=== PATIENT | female | born 1985 | race Caucasian/White ===

== ENCOUNTER 2021-09-11 13:48 | Outpatient (CLI) | payer BC ==
[2021-09-12 08:59] LABS: SARS-CoV-2 PCR by NAA Not Detected (NotDetected)
== END 2021-09-11 13:49 | disposition home or self-care (01) ==
LOC: CSHLAB 13:48
PROVIDERS: ATTEND Obstetrics & Gynecology
DX: Z20.822 Contact with and (suspected) exposure to COVID-19 (principal)
CPT/HCPCS: U0003; U0005

== ENCOUNTER 2021-09-13 05:48 | Inpatient (IN) | payer BC ==
[2021-09-13] MEDS ORDERED: Bicitra 30 ML UDCUP PO PRN (05:57)
[2021-09-13] MEDS ORDERED: Butorphanol Tartrate 1 MG/ML VIAL SLOW IVP PRN (05:57)
[2021-09-13] MEDS ORDERED: hydrALAZINE 20 MG/ML VIAL SLOW IVP PRN ×2 (05:57→10:39)
[2021-09-13] MEDS ORDERED: Ondansetron PF 4 MG/2 ML Vial IVP PRN ×4 (05:57→13:33)
[2021-09-13] MEDS ORDERED: CEFAZOLIN 2 GM in Premix Bag 1 BAG IVPB SCH (05:57)
[2021-09-13] MEDS ORDERED: Famotidine/PF 20 mg/2ml Vial SLOW IVP PRN (05:57)
[2021-09-13] MEDS ORDERED: Promethazine HCl 25 MG/ML VIAL IM PRN ×3 (05:57→13:33)
[2021-09-13 06:30] VITALS: BMI 32.8
[2021-09-13] MEDS: Lactated Ringer's 1,000 ML IV SCH ×2 (06:40→07:15)
[2021-09-13 06:55] LABS: Hemoglobin 12.1 g/dL (12.0-15.5); Mean Corpuscular HGB CONC 33.9 g/dL (32.0-36.0); Mean Corpuscular Hemoglobin 30.9 pg (27.0-33.0); Mean Corpuscular Volume 91.1 fl (81.6-98.3); Mean Platelet Volume 10.9 fl (7.4-10.4); Platelet Count 329 10x3/uL (150-450); RBC Distribution Width 13.2 % (11.5-14.5); Red Blood Cell (RBC) Count 3.92 10x6/uL (3.90-5.03); White Blood Cell (WBC) Count 10.9 10x3/uL (3.5-10.5)
[2021-09-13] MEDS ORDERED: Oxytocin 10 UNITS/ML VIAL ONE ×2 (07:08→08:16)
[2021-09-13] MEDS ORDERED: Ketorolac Tromethamine 30 MG/ML VIAL ONE (07:12)
[2021-09-13] MEDS ORDERED: Ondansetron PF 4 MG/2 ML Vial ONE (07:12)
[2021-09-13] MEDS ORDERED: Phenylephrine 40 MG/NS 250 ML 250 ML ONE (07:12)
[2021-09-13] MEDS ORDERED: Morphine PF 10 MG/10 ML VIAL ONE (07:17)
[2021-09-13] MEDS ORDERED: diphenhydrAMINE 50 MG/ML VIAL IVP PRN ×2 (07:28→13:33)
[2021-09-13] MEDS ORDERED: Fentanyl 100 MCG/2 ML VIAL SLOW IVP PRN ×2 (07:28→13:33)
[2021-09-13] MEDS ORDERED: Ketorolac Tromethamine 30 MG/ML VIAL IVP PRN (07:28)
[2021-09-13] MEDS ORDERED: Ondansetron HCl/PF 4 MG/2 ML Vial IVP PRN ×2 (07:28→13:33)
[2021-09-13] MEDS ORDERED: Naloxone HCl 0.4 mg/ml Vial IV PRN ×2 (07:28→13:33)
[2021-09-13] MEDS ORDERED: Hydrocerin (Eucerin) Cream 120 gm Jar TOP PRN ×2 (07:28→13:33)
[2021-09-13] MEDS ORDERED: Naloxone HCl 0.4 mg/ml Vial IVP PRN ×4 (07:28→13:33)
[2021-09-13] MEDS ORDERED: Promethazine HCl 25 MG SUPP PR PRN ×2 (07:28→13:33)
[2021-09-13] MEDS ORDERED: Meperidine HCl/PF 25 MG/ML VIAL SLOW IVP PRN ×2 (07:28→13:33)
[2021-09-13] MEDS ORDERED: HYDROmorphone 2 MG/ML VIAL SLOW IVP PRN (07:28)
[2021-09-13] MEDS ORDERED: Ketorolac Tromethamine 30 MG/ML VIAL IVP SCH ×2 (07:30→13:45)
[2021-09-13] MEDS ORDERED: Communication Order-Pharmacy FS SCH (07:30)
[2021-09-13 07:56] LABS: Hep B Surf Ag Non-Reactive S/CO (NonReactive); Syphilis Antibody Nonreactive (Nonreactive); Syphilis Antibody Index 0.02 S/CO (<1.00 Non-Reactive)
[2021-09-13] MEDS ORDERED: PROPOFOL 20 ML ONE (08:03)
[2021-09-13 08:16] LABS: HBSAg Index 0.18 S/CO (0-0.99)
[2021-09-13] MEDS ORDERED: Dexamethasone 4 mg/ml Vial ONE (08:16)
[2021-09-13] MEDS ORDERED: PHENYLEPHRINE-NS 100 MCG/ML 10 ML SYRINGE ONE (08:38)
[2021-09-13] MEDS ORDERED: Boostrix 0.5 ML (Tdap) VIAL IM ONE (10:39)
[2021-09-13] MEDS ORDERED: diphenhydrAMINE 25 MG CAP PO PRN (10:39)
[2021-09-13] MEDS ORDERED: HYDROcodone/Acetaminophen 5/325 mg Tablet PO PRN ×2 (10:39)
[2021-09-13] MEDS ORDERED: Lanolin Ointment 7 GM TUBE TOP PRN (10:39)
[2021-09-13] MEDS ORDERED: Simethicone Chewable 80 MG TAB PO PRN (10:39)
[2021-09-13] MEDS ORDERED: Bisacodyl 10 MG SUPP PR PRN (10:39)
[2021-09-13] MEDS ORDERED: Ferrous Sulfate 325 MG TAB PO SCH (11:00)
[2021-09-13] MEDS ORDERED: Prenatal Vitamin 1 TAB PO SCH (11:00)
[2021-09-13] MEDS ORDERED: Docusate Calcium (SURFAK) 240 MG CAP PO SCH (11:00)
[2021-09-13] MEDS ORDERED: Communication Order-Pharmacy FS PRN (13:45)
[2021-09-13] MEDS ORDERED: Ibuprofen 800 MG TAB PO SCH (14:00)
[2021-09-13] MEDS: Ketorolac Tromethamine 30 MG/ML VIAL IVP PRN ×2 (14:05→21:26)
[2021-09-13] MEDS: Docusate Calcium (SURFAK) 240 MG CAP PO SCH (21:26)
[2021-09-13] MEDS: Ferrous Sulfate 325 MG TAB PO SCH (21:57)
[2021-09-14 05:32] LABS: Hemoglobin 10.1 g/dL (12.0-15.5); Mean Corpuscular Hemoglobin 31.8 pg (27.0-33.0); Mean Corpuscular Volume 93.4 fl (81.6-98.3); Mean Platelet Volume 11.2 fl (7.4-10.4); Platelet Count 283 10x3/uL (150-450); RBC Distribution Width 13.2 % (11.5-14.5); Red Blood Cell (RBC) Count 3.18 10x6/uL (3.90-5.03); White Blood Cell (WBC) Count 12.6 10x3/uL (3.5-10.5)
[2021-09-14] MEDS: Docusate Calcium (SURFAK) 240 MG CAP PO SCH ×2 (09:02→22:26)
[2021-09-14] MEDS: Ketorolac Tromethamine 30 MG/ML VIAL IVP PRN (09:02)
[2021-09-14] MEDS: Prenatal Vitamin 1 TAB PO SCH (09:02)
[2021-09-14] MEDS: Ferrous Sulfate 325 MG TAB PO SCH ×2 (09:02→22:26)
[2021-09-14] MEDS: Ibuprofen 800 MG TAB PO SCH ×2 (13:35→22:27)
[2021-09-14] MEDS ORDERED: HYDROcodone/Acetaminophen 10/325 mg Tablet PO PRN (14:11)
[2021-09-14] MEDS ORDERED: HYDROcodone/Acetaminophen 5/325 mg Tablet PO PRN (14:11)
[2021-09-15] MEDS: Ibuprofen 800 MG TAB PO SCH (05:09)
[2021-09-15 08:02] VITALS: BP 112/73; TEMP 97.8
[2021-09-15] MEDS: Ferrous Sulfate 325 MG TAB PO SCH (09:11)
[2021-09-15] MEDS: Prenatal Vitamin 1 TAB PO SCH (09:11)
[2021-09-15] MEDS: Docusate Calcium (SURFAK) 240 MG CAP PO SCH (09:11)
== END 2021-09-15 13:43 | disposition home or self-care (01) | DRG 788 ==
LOC: CSHLD 05:48 → CSHPED 10:23
PROVIDERS: ADMIT Obstetrics & Gynecology; ATTEND Obstetrics & Gynecology
PROC: 10D00Z1 Extraction of Products of Conception, Low, Open Approach (ICD-10-PCS; principal; 2021-09-13)
PROC: 0UB90ZZ Excision of Uterus, Open Approach (ICD-10-PCS; 2021-09-13)
DX: O34.13 Maternal care for benign tumor of corpus uteri, third trimester (principal); Z37.0 Single live birth; Z3A.37 37 weeks gestation of pregnancy
CPT/HCPCS: 36415; 85027; 86780; 86850; 86900; 86901; 87340; J0690; J1100; J1885; J2274; J2405; J2590; J2704; J7120; S0028; U0003; U0005